=== PATIENT | male | born 1965 | race Two or more races ===

== ENCOUNTER → 2017-12-24 | Day surgery (SDC) | payer OTHER ==
[2017-12-24] VITALS (9 sets, daily range): BP systolic 101–130; BP diastolic 66–91
[~2017-12-24] VITALS: Ht 160 cm; Wt 80.7 kg
[~2017-12-24] MED LIST: ASPIR 8181 MG ORAL; Atropine Inj 1mg/10ml Syr IV PRN; DiphenhydrAMINE 50mg/ml Inj IVP PRN; LR 1000ml 1,000 ML IVLG SCH; LR 1000ml ONE; Lidocaine 1% MPF 10mg/ml 5ml ONE; Midazolam 2mg/2ml Inj IVP PRN; PROPOFOL 10 MG/ML IV ONE; Propofol 200mg/20ml IV ONE; SIMVASTATIN10 MG ORAL; [UNRECOGNIZED DRUG - OTHER] PO; fentaNYL 100 mcg/2 mL IV PRN; ibuprofen PO
--- NOTE | 2017-12-24 06:50 | Anethesia Preoperative Eval ---
Anesthesia Pre-op PMH/ROS General Date of Evaluation: Dec 24, 2017 Time of Evaluation: 06:50 Anesthesiologist: nila ASA Score: ASA 2 Mallampati Score Class I : Soft palate, uvula, fauces, pillars visible Class II: Soft palate, uvula, fauces visible Class III: Soft palate, base of uvula visible Class IV: Only hard plate visible Mallampati Classification: Class II Surgeon: zayra Diagnosis: gerd Surgical Procedure: egd Anesthesia History: none Family History: no anesthesia problems Allergies: Coded Allergies: No Known Allergies (Unverified , 12/23/17) Medications: see eMAR Patient NPO?: Yes Past Medical History Cardiovascular: Reports: other - hypercholesterolemia Gastrointestinal/Genitourinary: Reports: GERD Anesthesia Pre-op Phys. Exam Physician Exam Last Vital Signs Date Time Temp Pulse Resp B/P (MAP) Pulse Ox O2 Delivery O2 Flow Rate FiO2 12/24/17 09:04 73 12 110/70 95 Room Air 12/24/17 08:54 97.1 97.1 Constitutional: NAD Neurologic: CN 2-12 intact Cardiovascular: RRR Respiratory: CTA Gastrointestinal: S/NT/ND Airway Exam Mallampati Score: Class II MO: full Neck: supple TMD: 2eb ROM: full Anesthesia Pre-op A/P Risk Assessment & Plan Assessment: asa2 Plan: mac Status Change Before Surgery: No Pre-Antibiotics Drug: Lisbeth Metcalf MD Dec 24, 2017 06:50
--- NOTE | 2017-12-24 08:35 | Short Stay Surgery H&P ---
History of Present Illness History of Present Illness Chief Complaint Abdominal pain/GERDs HPI Kris Hogan is a 52 year old male who was admitted on for Heartburn, Gerd/abdominal pains Patient History Allergies: Coded Allergies: No Known Allergies (Unverified , 12/23/17) Past Surgeries: (1) H/O foot surgery (2) History of surgery on arm Review of Systems Cardiovascular: Reports: no symptoms Respiratory: Reports: no symptoms Skeletal: Reports: trauma Gastrointestinal: Reports: gastro esophageal reflux disease Genitourinary: Reports: no symptoms Neurologic: Reports: no symptoms Endocrine: Reports: no symptoms Hematologic: Reports: no symptoms Physical Exam Vital Signs Last Vital Signs Date Time Temp Pulse Resp B/P (MAP) Pulse Ox O2 Delivery O2 Flow Rate FiO2 12/24/17 08:18 97.7 78 18 116/87 97 Room Air 97.7 Skin: normal HENT: normal Heart: normal Lungs: normal Abdomen: abnormal Extremities: normal Genitourinary: normal Plan Plan of Care Upper GI endoscopy and biopsy Preop Interventions None. Summary of Findings See the reports Attestation Are the patient's medical conditions optimized for surgery? Attestation Response: yes Ayesha Lawrence MD Dec 24, 2017 08:35
--- NOTE | 2017-12-24 08:36 | Pre-Procedure Note/Attestation ---
Pre-Procedure Note/Attestation Complete Prior to Procedure Planned Procedure: left Procedure Narrative: Examination of the Upper GI tract via endoscope with obtaining biopsies Indications for Procedure Pre-Operative Diagnosis: R/ Peptic Ulcer/gastris/esophagitis Attestation I attest that I discussed the nature of the procedure; its benefits; risks and complications; and alternatives (and the risks and benefits of such alternatives ), prior to the procedure, with the patient (or the patient's legal applications sales representative). I attest that, if there was a reasonable possibility of needing a blood transfusion, the patient (or the patient's legal applications sales representative) was given the [facility] of Health Services standardized written summary, pursuant to the Nathen Jorje Blood Safety Act ([place] Health and Safety Code # 1645, as amended). I attest that I re-evaluated the patient just prior to the surgery and that there has been no change in the patient's H&P, except as documented below: Ayesha Lawrence MD Dec 24, 2017 08:36
--- NOTE | 2017-12-24 08:36 | Pre-Procedure Note/Attestation ---
Pre-Procedure Note/Attestation Complete Prior to Procedure Planned Procedure: left Indications for Procedure Pre-Operative Diagnosis: R/ Peptic Ulcer/gastris/esophagitis Attestation I attest that I discussed the nature of the procedure; its benefits; risks and complications; and alternatives (and the risks and benefits of such alternatives ), prior to the procedure, with the patient (or the patient's legal personnel representative). I attest that, if there was a reasonable possibility of needing a blood transfusion, the patient (or the patient's legal personnel representative) was given the [facility] of Health Services standardized written summary, pursuant to the Nathen Jorje Blood Safety Act ([place] Health and Safety Code # 1645, as amended). I attest that I re-evaluated the patient just prior to the surgery and that there has been no change in the patient's H&P, except as documented below: Ayesha Lawrence MD Dec 24, 2017 08:36
--- NOTE | 2017-12-24 08:55 | Endoscopy Procedure Note ---
Endoscopy Procedure Note General Indication for Procedure: Abdominal pains/GERd Procedures Performed: EGD - gastritis, biopsies obtained from antrum/gastric body and GE junction. Specimen: yes Pt Tolerated Procedure Well: Yes Estimated Blood Loss: none Anesthesia Anesthesiologist: Dr. Martins Anesthesia: moderate sedation Medications Medication Given: see anesthesia record Inserted Devices Implant(s) used?: No Quality Quality of Bowel Preparation: Excellent GI Core Measures 50 yrs or older w/o bx or poly: Not Applicable 10yrs. F/U not recommended: Not Applicable If not recommended, why?: Med reason:<3 yrs.: System Reason:<3 yrs.: Ayesha Lawrence MD Dec 24, 2017 08:55
--- NOTE | 2017-12-24 08:56 | Discharge Instructions ---
Discharge Instructions Discharge Instructions Follow up with: See the doctor in office after two weeks. For Congestive Heart Failure Reminder Report to your physician any weight gain of 5 pounds or more in one week. Ayesha Lawrence MD Dec 24, 2017 08:56
--- NOTE | 2017-12-24 09:17 | Immediate Post-Op Evaluation ---
Immediate Post-Op Evalulation Immediate Post-Op Evalulation Procedure: egd w/bx Date of Evaluation: Dec 24, 2017 Time of Evaluation: 09:06 IV Fluids: 200ml lr Blood Products: none Estimated Blood Loss: negligible Blood Pressure Systolic: 102 Blood Pressure Diastolic: 66 Pulse Rate: 73 Respiratory Rate: 18 O2 Sat by Pulse Oximetry: 99 Temperature (Fahrenheit): 97.1 Pain Score (1-10): 0 Nausea: No Vomiting: No Complications none Patient Status: awake, reacts, patent Hydration Status: adequate Drug: Lisbeth Metcalf MD Dec 24, 2017 09:17
--- NOTE | 2017-12-24 09:18 | 48 Hour Post Anesthesia Eval ---
Post Anesthesia Evaluation Procedure: egd w/bx Date of Evaluation: Dec 24, 2017 Time of Evaluation: 09:17 Blood Pressure Systolic: 104 0: 77 Pulse Rate: 77 Respiratory Rate: 18 Temperature (Fahrenheit): 97.1 O2 Sat by Pulse Oximetry: 99 Airway: patent Nausea: No Vomiting: No Pain Intensity: 0 Hydration Status: adequate Cardiopulmonary Status: stable Mental Status/LOC: patient returned to baseline Post-Anesthesia Complications: none Follow-up care needed: N/A Lisbeth Andrews MD Dec 24, 2017 09:18
--- NOTE | 2017-12-24 16:15 | Operative Note - Dictated ---
DATE OF OPERATION: 12/24/2017 SURGEON: Ayesha Lawrence M.D. PROCEDURE: Esophagogastroduodenoscopy with biopsy. PREOPERATIVE DIAGNOSES: Abdominal pain, epigastric pain, and heartburn. POSTOPERATIVE DIAGNOSIS: Generalized gastritis. Biopsy was taken from the antrum and gastric body and gastroesophageal junction. MEDICATION USED: Per Dr. Martins, anesthesiologist. INSTRUMENT: GIF Olympus upper GI videoendoscope. DESCRIPTION OF PROCEDURE: The patient after arriving at the endoscopy unit, was told about risks and benefits of the procedure which he accepted and signed informed consent. He was then put on the left lateral decubitus position. After adequate IV sedation, the scope was gently passed through the cricopharyngeal area, was lodged into the upper esophagus, and gradually advanced towards gastroesophageal junction. The entire length of esophagus looked normal. No evidence of inflammatory process, ulceration, or stricture, etc. was found. GE junction also was found to be normal probably and there was a probability of Nichols's mucosa and a biopsy from this area was obtained at the GE junction however. There was no ulcerations or bleeding. The scope was advanced into the stomach. Gastric cavity was distended and the areas of the fundus and the body and the antrum were examined in an instrumentation manager fashion, which revealed evidence of mild inflammatory process along the gastric body and particularly in the antral area. At this point, 2 biopsies were obtained, 1 from the gastric body and the other 1 is from the pre-pyloric area and subsequently the scope was passed through the pylorus. First and second portion of duodenum were found to be completely normal. Finally, the scope was pulled out in the stomach. A retroflexion maneuver was applied. The area of the gastroesophageal junction was examined in a closer fashion, which revealed no other abnormalities. At this point, the scope was pulled out. The procedure was terminated. The patient tolerated the procedure well and left the endoscopy room in a good condition. Ayesha Lawrence M.D. DR: TONA JOB#: [id number] CC:
--- NOTE | 2017-12-24 16:45 | Pre-op HX & Phy Repo 2 SIG ---
DATE OF ADMISSION: 12/24/2017 HISTORY OF PRESENT ILLNESS: The patient is a 52-year-old gentleman, who is being seen prior to undergoing the procedure for upper GI endoscopy for which he has been scheduled to receive for evaluation of his gastrointestinal condition that he has been suffering subsequent to his work injury. The patient basically reports to me that he is experiencing pain over the upper and lower part of his abdomen, but mostly in the epigastric area associated with feeling of rather severe heartburn and discomfort over the epigastric area and chest as well. He reports that this pain basically started after he was prescribed multiple medications including nonsteroidal anti-inflammatory agents subsequent to his work injury. He has also gained some 30 pounds subsequent to his injury at work. As I mentioned, the patient has been receiving multiple medications including nonsteroidal anti-inflammatory agents and narcotics to control his pain that he has suffered over different parts of the body. He also complains of intermittent diarrhea and constipation along with pain generalized, being generally felt all over the abdomen as I mentioned. He denies having any GI conditions in the past before being injured at job site. At this time, he denies nausea, vomiting, hematemesis, melena, hematochezia, etc. The patient has past history of examination mentioned was injured at job site as he was working in a [employer]. He had also different jobs in the warehouse as well. He reported during this process he gradually started to have pain in his different parts of the body and particularly he was dropping things from his right hand. He is also experiencing headaches as well. Also medical records revealed that he has a history of Helicobacter pylori infection in the past, but does not clear it was adequately treated or not. Finally, he was found to have lumbar sacral sprain/strain, right elbow biceps rupture, bilateral carpal tunnel syndrome along with the diagnosis of depression for which he was seen by different physicians. Also medical records revealed the applicant has had upper GI endoscopy approximately a year ago, finding consistent with erosive gastritis and evidence of reflux disease. PAST MEDICAL HISTORY: None significant. He denies hypertension, hypercholesterolemia, arthritis. PAST SURGICAL HISTORY: Surgery, over the right arm and left foot, which is nonsignificant. HABITS: He denies drinking alcohol or smoking cigarettes. MEDICATIONS: Omeprazole, ibuprofen, aspirin, and atorvastatin. REVIEW OF SYSTEMS: Basically history of present illness. PHYSICAL EXAMINATION: GENERAL: Reveals alert and oriented gentleman, does not seem to be in any acute distress. He looks well developed and nourished and answers the questions quite properly. VITAL SIGNS: Stable. HEENT: Normocephalic. Pupils equal in size and reactive to light and accommodation. No jaundice. Buccal cavity, tongue midline. No ulcers. NECK: Supple. No JVD or thyromegaly. CHEST: Clear to auscultation and percussion. No rales or rhonchi. HEART: S1 and S2 normal and regular rhythm. No gallops or murmur. ABDOMEN: Obese, but soft. There is tenderness over the upper and lower part of the abdomen, but mostly in the epigastric area. EXTREMITIES: Unremarkable. NEUROLOGIC: Unremarkable. IMPRESSION: 1. Abdominal pain, epigastric pain of uncertain etiology, rule out NSAID induced gastropathy, peptic ulcer disease, esophagitis, and gastritis. 2. Possible underlying irritable bowel syndrome, IBS, aggravated by anxiety and stress related to work, accident, side effects, and NSAID medications and narcotics. 3. History of anxiety and depression. RECOMMENDATIONS: The applicant seems to be stable at this time to undergo the procedure of upper GI endoscopy for which he has been scheduled. He understands the risks and benefits and will sign consent form. Said Rosa Lawrence DR: RIKI JOB#: [id number] CC:
== END | disposition home or self-care (01) ==
LOC: GAS 07:15
DX: K29.50 Unspecified chronic gastritis without bleeding (principal); K21.9 Gastro-esophageal reflux disease without esophagitis; F41.9 Anxiety disorder, unspecified; F32.9 Major depressive disorder, single episode, unspecified; E78.00 Pure hypercholesterolemia, unspecified; Z79.82 Long term (current) use of aspirin; Z79.899 Other long term (current) drug therapy
CPT/HCPCS: 43239; J2704; 94003; 94150